=== PATIENT | female | born 2000 | race Caucasian/White ===

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

== ENCOUNTER 2022-11-29 14:28 | Emergency (ER) | payer OTHER, SELFPAY ==
[~2022-11-29] VITALS: Ht 167.6 cm; Wt 94.1 kg
[~2022-11-29 14:28] MED LIST: FAMO20TA PO; LEXA5TAB13 PO; PRED20TA PO
[2022-11-29] MEDS ORDERED: BOOSTRIX VACCINE (TETANUS/DIPHTH/ACEL. PERTUSSIS) 0.5ML SYR IM.IMMUN ONE (14:35)
[2022-11-29 14:59] LABS: BASO % 0.2 % (0.0-1.0); EOS # 0.1 10^3/uL (0.0-0.5); EOS % 1.1 % (0.0-3.0); HEMOGLOBIN 13.2 g/dl (12.0-15.5); LYMPH # 1.7 10^3/uL (1.5-5.0); LYMPH % 19.2 % (24.0-44.0); MEAN CORPUSCULAR HEMOGLOBIN 27.2 pg (27.0-33.0); MEAN CORPUSCULAR VOLUME 82.3 fl (80.0-96.0); MONO # 0.5 10^3/uL (0.0-0.8); NEUTROPHILS # 6.6 10^3/uL (1.5-8.5); NEUTROPHILS % 73.9 % (36.0-66.0); PLATELET COUNT, AUTOMATED 299 10^3/uL (150-450); RED BLOOD COUNT 4.86 10^6/uL (4.00-5.40)
[2022-11-29] MEDS ORDERED: POTASSIUM CHLORIDE 10MEQ SR TABLET PO ONE (15:00)
[2022-11-29] MEDS ORDERED: ISOVUE-370 76% 100ML VIAL As Ordered ONE (15:11)
[2022-11-29] MEDS ORDERED: LIDOCAINE 1% MDV 20ML VIAL SC ONE (16:30)
[2022-11-29] MEDS ORDERED: BACITRACIN OINTMENT 30GM TUBE TOP ONE (17:25)
[2022-11-29 18:05] VITALS: BP 122/76
[2022-11-29] MEDS ORDERED: ACETAMINOPHEN TAB 650MG DOSE (2X325MG) PO ONE (19:10)
== END 2022-11-29 19:13 | disposition home or self-care (01) ==
LOC: M ED 14:28 → EDBD 14:28 → M ED 19:13
DX: S01.81XA Laceration without foreign body of other part of head, initial encounter (principal); S93.401A Sprain of unspecified ligament of right ankle, initial encounter; V49.40XA Driver injured in collision with unspecified motor vehicles in traffic accident, initial encounter; Z79.52 Long term (current) use of systemic steroids; Z79.899 Other long term (current) drug therapy
CPT/HCPCS: 12015; 70450; 71260; 72125; 73610; 74177; 80047; 84702; 85025; 90471; 90715; 93041; 94760; 96372; 99285; Q9967